=== PATIENT | female | born 1960 | race Caucasian/White ===

== ENCOUNTER 2025-04-30 13:56 | Emergency (ER) | payer BC ==
[2025-04-30 14:06] VITALS: BP 154/78; PULSE 66; RESP 18; TEMP 97.7; BMI 18.0
[2025-04-30 14:48] LABS: ABSOLUTE IMMATURE GRANULOCYTES 0.02 x10^3/uL (0.0-0.031); BASOPHILS # 0.06 x10^3/uL (0.01-0.08); EOSINOPHIL % 7.1 % (0.7-5.8); EOSINOPHILS # 0.39 x10^3/uL (0.04-0.36); MCHC 33.5 g/dl (32.2-35.5); MEAN CELL VOLUME 93.0 fl (79.4-94.8); MEAN PLT VOLUME 9.1 fl (9.4-12.3); MONOCYTE # 0.50 x10^3/uL (0.24-0.86); MONOCYTE % 9.1 % (4.7-12.5); RDW 12.3 % (12.4-16.4)
[2025-04-30 14:56] LABS: INR 1.0 (0.83-1.09); PROTHROMBIN TIME (PATIENT) 11.0 SEC (9.7-13.0)
[2025-04-30 14:59] LABS: ACTIVATED PTT 31.9 SECONDS (25.2-36.5)
[2025-04-30] MEDS ORDERED: MAG HYDROX/AL HYDROX/SIMETH 30 ML UNIT-DOSE CUP ONE (14:59)
[2025-04-30] MEDS ORDERED: FAMOTIDINE 20 MG TABLET ONE (14:59)
[2025-04-30] MEDS: FAMOTIDINE 20 MG TABLET PO ONE (15:12)
[2025-04-30] MEDS: MAG HYDROX/AL HYDROX/SIMETH 30 ML UNIT-DOSE CUP PO ONE (15:12)
[2025-04-30 15:13] LABS: GLUCOSE,RANDOM 144.0 mg/dL (74-106); TOT PROT 6.7 g/dl (6.4-8.2)
[2025-04-30 15:14] LABS: CO2 26.0 mmol/L (21-32)
[2025-04-30 15:15] LABS: ALK PHOS 65.0 U/L (40-150)
[2025-04-30 15:18] LABS: CREATININE 0.63 mg/dL (0.55-1.3); SGOT/AST 37.0 U/L (5-34); SGPT/ALT 29.0 U/L (0-55)
[2025-04-30] MEDS ORDERED: MECLIZINE HCL 25 MG TABLET (FP) ONE (15:50)
[2025-04-30] MEDS: MECLIZINE HCL 25 MG TABLET (FP) PO ONE (15:51)
[2025-04-30] MEDS: SODIUM CHLORIDE 0.9% 500 ML INFUS.BAG IV ONE (15:52)
== END 2025-04-30 16:49 | disposition home or self-care (01) ==
LOC: JER 13:56
DX: R42 Dizziness and giddiness (principal); R09.82 Postnasal drip; R09.A2 Foreign body sensation, throat; R06.00 Dyspnea, unspecified; R07.9 Chest pain, unspecified
CPT/HCPCS: 36415; 71046-TC-FY; 80053; 84484; 85025; 85610; 85730; 86850; 86900; 86901; 87637-QW; 93005; 93010; 99285-25